=== PATIENT | male | born 1985 | race Caucasian/White ===

== ENCOUNTER 2022-02-16 07:39 | Emergency (ER) | payer OTHER, SELFPAY ==
[2022-02-16 07:47] VITALS: BP 136/72; PULSE 80; RESP 18; TEMP 36.3; O2SAT 98; BMI 32.5
--- NOTE | 2022-02-16 08:04 | ED.ALLEREA ---
HPI - Allergic Reaction General Chief complaint: Skin/Abscess/Foreign Body Stated complaint: stung by bee L hand. Possibly allergic Time Seen by Provider: 02/16/22 07:44 Source: patient Mode of arrival: ambulatory History of Present Illness HPI narrative: 36-year-old male who reports that he has had a history of an adverse reaction to a bee sting when he was 2 years old but has never carried an EpiPen with him and states that last night at approximately 20:00 he was stung by a bee but he does not know what kind. He did not experience any problems but over the night noted that his left hand became him much more swollen but denies any difficulty breathing or nausea or vomiting or any facial/lip/tongue swelling. Related Data Previous Rx's Medication Instructions Recorded epinephrine 0.3 mg/0.3 mL 0.3 mg (0.3 mL) IM Q4H PRN 02/16/22 injection, auto-injector (EpiPen anaphylaxis #2 ea 2-Levy) Allergies Allergy/AdvReac Type Severity Reaction Status Date / Time No Known Allergies Allergy Verified 02/16/22 07:50 Review of Systems Review of Systems: Pertinent positives and negatives as stated in HPI 10 point review of systems is otherwise negative. PMFSH Past Medical History Source: nursing notes reviewed Social History Social History Use of substances other than those prescribed or required for medical reasons: No Advance Directives: No Advance Directives Information Provided: No Physical Exam ED Vital Signs: Vital Signs - 24 hr 02/16/22 07:47 02/16/22 08:29 Temperature 97.4 F Pulse Rate 80 77 Respiratory Rate 18 20 Blood Pressure 136/72 140/94 H Pulse Oximetry 98 99 Oxygen Delivery Method Room Air Room Air BMI result Body Mass Index 32.5 VITAL SIGNS: Reviewed. GENERAL: Well developed, well nourished, in no acute distress. HEAD: Normocephalic/atraumatic EYES: PERRLA, EOMI EARS: Ext canals without abnormality OROPHARYNX: no oral lesions noted, posterior pharynx clear and non-erythematous without noted tonsillar enlargement/erythema/exudates, no facial/lip/tongue swelling. NECK: Supple, no adenopathy LUNGS: Normal breath sounds. No adventitious sounds or accessory muscle use. SpO2<98> CARDIOVASCULAR: Regular rate and rhythm without noted murmurs ABDOMEN: Soft, non-tender, non-distended with bowel sounds. MUSCULOSKELETAL: No tenderness, deformities, or effusions noted on gross inspection. EXTREMITIES: No cyanosis, clubbing or edema; LEFT HAND: Patient's left hand is swollen without erythema/warmth/induration, his wedding ring and watch have been removed. SKIN: Inspection of the skin reveals no rashes NEUROLOGIC: Alert and oriented x 4. Strength and sensation to light touch were grossly intact x 4. Course Course Course Narrative: 36-year-old male with history and clinical presentation consistent with localized swelling from insect sting. He was provided with 50 mg of Benadryl with negative bowl improvement in the hand swelling, he will be discharged home in stable condition with instructions to continue with Benadryl throughout the day as well as elevation of the hand and application cool compresses. He remains without airway or swallowing difficulties. He will be discharged within epi Discharge Plan Discharge Clinical Impression: Insect bites, Allergic reaction Patient Disposition: Home, Self-Care Instructions: Insect Bite or Sting (ED), General Allergic Reaction (ED), Cold Compress or Soak (ED) Additional Instructions: 1. Recommend cool compresses, hand elevation, do not replace your ring or watch to that extremity until the swelling has completely resolved. 2. Recommend [id number] Benadryl as directed on the outside packaging over the next 24 hours for additional swelling reduction. 3. Please call the office of your primary care provider to set up an appointment for re-evaluation Return to the ER for worsening symptoms. Prescriptions: New epinephrine [EpiPen 2-Levy] 0.3 mg/0.3 mL auto-injector 0.3 mg IM Q4H PRN (Reason: anaphylaxis) Qty: 2 0RF Stand Alone Forms: Work/School Release
[2022-02-16] MEDS: diphenhydrAMINE HCL 25 MG TABLET 50 MG PO (08:27)
[2022-02-16 08:29] VITALS: BP 140/94; PULSE 77; RESP 20; O2SAT 99
[2022-02-16 09:31] VITALS: BP 128/88; PULSE 56; RESP 16; O2SAT 99
== END 2022-02-16 09:46 | disposition home or self-care (01) ==
PROVIDERS: Emergency Provider Student in an Organized Health Care Education/Training Program
DX: T63.441A Toxic effect of venom of bees, accidental (unintentional), initial encounter (principal); R22.32 Localized swelling, mass and lump, left upper limb; Y92.9 Unspecified place or not applicable
CPT/HCPCS: 99283; 99284; Q0163

== ENCOUNTER → 2022-02-17 08:52 | Outpatient (BNVA) | payer OTHER, SELFPAY | PROVIDERS: Visit Provider Physician Assistant Medical | DX: T63.441A Toxic effect of venom of bees, accidental (unintentional), initial encounter (principal); M79.89 Other specified soft tissue disorders | CPT/HCPCS: 99203 ==